=== PATIENT | male | born 1995 | race Two or more races ===

== ENCOUNTER 2024-03-31 08:19 | Emergency (ER) | payer OTHER ==
[~2024-03-31] VITALS: Ht 188 cm; Wt 70.4 kg
--- NOTE | 2024-03-31 08:59 | ED.PDOC ---
History of Present Illness HPI Comments 29Y M with PMHx TB presents to ED for chief complaint fever and cough x3days. Pt denies chest pain and SOB. No other symptoms reported. Pt was treated for TB last year. Pt vapes nicotine-containing substance. Chief Complaint: Flu like Time Seen by MD: 08:35 Reviewed Notes: Nurses Notes, Medications, Allergies Information Source: Patient Mode of Arrival: Ambulatory Timing: Days Duration: Since onset Severity: Mild Context: Recent: None Symptoms: Fever, Cough Modifying Factors: Nothing Associated Signs and Symptoms: None Past Medical History Past Medical History (Other): TB Surgical History: Denies all surgeries Family History Family History: Unknown Social History Smoker: Other (vapes) Alcohol: Denies ETOH Use Drugs: Denies Drug Use Lives In: Home Constitutional: Fever EENTM: No Symptoms Reported Respiratory: Cough Cardiovascular: No Symptoms Reported Gastrointestinal: No Symptoms Reported Genitourinary: No Symptoms Reported Neurological: No Symptoms Reported Musculoskeletal: No Symptoms Reported Integumentary: No Symptoms Reported Allergic/Immunocompromised: others Hematologic/Lymphatic: No Symptoms Reported Endocrine: No Symptoms Reported Psychiatric: No symptoms Reported All Other Systems: Reviewed and Negative Physical Exam General Appearance: No Apparent Distress, Normal HEENT: Normal ENT Inspection, Pharynx Normal, TMs Normal Neck: Full Range of Motion, Non-Tender, Normal, Normal Inspection Respiratory: Chest Non-Tender, Lungs Clear, No Accessory Muscle Use, No Re spiratory Distress, Normal Breath Sounds Cardiovascular: No Edema, No JVD, No Murmur, No Gallop, Normal Peripheral Pulses, Regular Rate/Rhythm Breast Exam: Deferred Gastrointestinal: No Organomegaly, Non Tender, No Pulsatile Mass, Normal Bowel Sounds, Soft Genitalia: Deferred Pelvic: Deferred Rectal: Deferred Extremities: No calf tenderness, Normal capillary refill, Normal inspection, Normal range of motion, Non-tender, No pedal edema Musculoskeletal : Apperance: Normal Neurologic: Alert, playground aide II-XII nml as Tested, No Motor Deficits, Normal Affect, Normal Mood, No Sensory Deficits Cerebellar Function: Normal Reflexes: Normal Skin: Dry, Normal Color, Warm Lymphatic: No Adenopathy Was a procedure done? Was a procedure done?: No Fever Differential Dx Differential Diagnosis: Influenza, Pneumonia, Pneumonitis, Sepsis, Viral Syndrome X-Ray, Labs, Meds, VS Vital Signs Date Time Temp Pulse Resp B/P (MAP) Pulse Ox O2 Delivery O2 Flow Rate FiO2 03/31/24 08:34 97.9 89 16 126/65 (85) 100 03/31/24 08:33 16 100 Room Air* [address] [address] Ph: [phone] DIAGNOSTIC IMAGING Diagnostic Imaging Report : [id number] Signed PATIENT: ZULEIKA ROSASCCT: [id number] UNIT: [id number] : 1995 LOC: ER ROOM / BED: / AGE / SEX: 29 / M ADM STATUS: REG ER SERVICE 1 ORDERING PHYSICIAN: PASTORA SELF MD PROCEDURE(s): CXRP - CHEST PORTABLE REASON: COUGH ORDER NUMBER(s): [id number], ACCESSION NUMBER(s): [id number] CHEST RADIOGRAPH Indication: COUGH Technique: Single frontal view of the chest was obtained COMPARISON: None FINDINGS: Lines and Tubes: None Lungs: Left upper lobe airspace disease. Pleura: No effusion. No pneumothorax. Cardiomediastinal contours: Unremarkable Bones: Unremarkable IMPRESSION: Left upper lobe airspace disease. ATED BY: KIRILL BARNETT MD DICTATED DATE/TIME: 03/31/24854 SIGNED BY: KIRILL BARNETT MD SIGNED DATE/TIME: 03/31/24854 CC: Time of 1ST Reevaluation: 09:05 Reevaluation 1ST: Unchanged Patient Education/Counseling: Diagnosis, Treatment, Prognosis, Need For Follow Up Family Education/Counseling: No Family Present Additional Information I reviewed the following notes from patient's past medical encounters: None The following tests were ordered, and results were reviewed by me: CXR Additional Information was gathered from interviewing the following independent historians: None I reviewed and agreed with the following test results read by other providers: CXR I discussed treatment and results with medical personnel. Departure 1 Departure Time of Disposition: 09:59 Impression: Primary Impression: Pneumonia Qualified Codes: J18.9 - Pneumonia, unspecified organism Disposition: HOME / SELF CARE / HOMELESS Condition: Good e-Prescriptions Azithromycin (Zithromax Z-Kalin) 250 Mg Tab 250 MG PO DAILY for 5 Days, #5 TAB Prov: PASTORA SELF MD 03/31/24 Discharged With: Self Critical Care Note Critical Care Time?: No Stability Stability form required: No Heart Score Heart Score: Heart Score Response (Comments) Value History N/A 0 EKG N/A 0 Age N/A 0 Risk Factors N/A 0 Troponin N/A 0 Total 0 I personally scribed for PASTORA SELF MD ([email or web address]) on 03/31/24 at 08:59. Electronically submitted by Evelin Harry ([employer]). I personally scribed for PASTORA SELF MD ([email or web address]) on 03/31/24 at 09:47. Electronically submitted by Evelin Harry ([employer]). PASTORA SELF MD Mar 31, 2024 08:59
[2024-03-31] MEDS ORDERED: AZITTAB PO (10:00)
[2024-03-31 10:10] VITALS: BP 126/69; PULSE 87; RESP 18; TEMP 97.9; O2SAT 98
== END 2024-03-31 10:21 | disposition home or self-care (01) ==
LOC: ER 08:19
DX: J18.9 Pneumonia, unspecified organism (principal); F17.290 Nicotine dependence, other tobacco product, uncomplicated; Z86.11 Personal history of tuberculosis
CPT/HCPCS: 71045

== ENCOUNTER 2024-04-04 12:48 | Emergency (ER) | payer OTHER ==
[~2024-04-04] VITALS: Ht 182.9 cm; Wt 70.0 kg
[~2024-04-04 12:48] MED LIST: AZITTAB PO
[2024-04-04 13:43] LABS: Basophils # (auto) 0 10 ^3/uL (0-0.2); Basophils % (auto) 0.4 % (0.0-2.0); Eosinophils # (auto) 0 10 ^3/uL (0-0.8); Eosinophils % (auto) 0.1 % (0.0-7.0); Hematocrit 48.5 % (41.0-53.0); Hemoglobin 16.4 g/dL (13.5-17.5); Lymphocytes # (auto) 1.9 10 ^3/uL (0.4-5.4); Lymphocytes % (auto) 38.2 % (10.0-50.0); Mean Corpuscular Hemoglobin 29.6 pg (28.0-32.0); Mean Corpuscular Hgb Conc. 33.8 g/dL (32.0-36.0); Mean Corpuscular Volume 87.4 fL (80.0-100.0); Monocytes # (auto) 0.7 10 ^3/uL (0-1.3); Monocytes % (auto) 14.2 % (0.0-12.0); Neutrophils # (auto) 2.3 10 ^3/uL (1.6-8.6); Neutrophils % (auto) 47.1 % (37.0-80.0); Nucleated Red Blood Cells % 0.2 %; Platelet Count (auto) 194 10^3/uL (140-450); Red Blood Cells 5.54 10^6/uL (4.5-5.90); Red Cell Distribution Width 13.8 % (11.8-14.3); White Blood Cell 4.9 10^3/uL (4.4-10.8)
--- NOTE | 2024-04-04 13:49 | ECG ---
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
[2024-04-04 13:56] LABS: Alanine Aminotransferase 18 U/L (7-40); Alkaline Phosphatase 67 U/L (46-116); Anion Gap 10 (5-15); Aspartate Aminotransferase 30 U/L (13-40); BUN/Creatinine Ratio 12.4 (10.0-20.0); Blood Urea Nitrogen 11 mg/dL (9-23); Carbon Dioxide 28 mmol/L (20-31); Chloride 102 mmol/L (98-107); Glucose 104 mg/dL (74-106); Potassium 4.5 mmol/L (3.5-5.1); Sodium 140 mmol/L (136-145)
[2024-04-04 13:57] LABS: Albumin 4.8 g/dL (3.2-4.8); Bilirubin, Total 0.4 mg/dL (0.2-1.0); Total Protein 7.4 g/dL (5.7-8.2)
[2024-04-04 14:02] LABS: Calcium 10.1 mg/dL (8.7-10.4)
[2024-04-04] MEDS: SODIUM CHLORIDE 0.9% 1,000 ML IV ONE (14:37)
--- NOTE | 2024-04-04 15:06 | DVH ---
CHEST RADIOGRAPH Indication: cough Technique: Single frontal view of the chest was obtained Comparison: XY CHEST PORTABLE on DOS: 03/31/24 FINDINGS: Lines and Tubes: None Lungs: left upper lobe opacity. Pleura: No effusion. No pneumothorax. Cardiomediastinal contours: Unremarkable Bones: No acute osseous abnormality. IMPRESSION: left upper lobe opacity.
[2024-04-04] MEDS: ADENOSINE 6 MG/2 ML INJ IV ONE ×2 (15:30→15:31)
--- NOTE | 2024-04-04 16:49 | ED.PDOC ---
HPI Comments 29-year-old male presents with palpitations and racing heart. Patient states he was seen here on March 31 and diagnosed with pneumonia. States he has been taking his medications as prescribed. Today he noticed racing heart and it became very uncomfortable. States he was did have some mild shortness of breath due to the racing heartbeat no chest pain. No dizziness no headaches. Nothing makes it better, moving makes the palpitations worse. Patient states no prior cardiac history. States he has not seen a doctor in many years. Chief Complaint: Palpitations Time Seen by MD: 13:15 Primary Care Provider: NONE Reviewed Notes: Nurses Notes Allergies: Coded Allergies: NO KNOWN ALLERGIES (Unverified , 03/31/24) Home Meds Active Scripts Azithromycin (Zithromax Z-Kalin) 250 Mg Tab, 250 MG PO DAILY for 5 Days, #5 TAB Prov:PASTORA SELF MD 03/31/24 Information Source: Patient Mode of Arrival: Ambulatory Past Medical History PAST MEDICAL HISTORY: Denies Surgical History: Denies all surgeries Family History Family History: Unknown Social History Smoker: Other Alcohol: Denies ETOH Use Drugs: Denies Drug Use Lives In: Home Constitutional: denies: chills, diaphoresis, fatigue, fever, malaise, sweats, weakness, others EENTM: denies: blurred vision, double vision, ear bleeding, ear discharge, ear drainage, ear pain, ear ringing, eye pain, eye redness, hearing loss, mouth pain, mouth swelling, nasal discharge, nose bleeding, nose congestion, nose pain, photophobia, tearing, throat pain, throat swelling, voice changes, others Respiratory: reports: cough, shortness of breath; denies: hemoptysis, orthopnea, SOB at rest, SOB with excertion, stridor, wheezing, others Cardiovascular: reports: irregular heart beat, palpitations; denies: chest pain, dizzy spells, diaphoresis, Dyspnea on exertion, edema, left arm pain, lightheadedness, PND, syncope, others Gastrointestinal: denies: abdomen distended, abdominal pain, blood streaked bowels, constipated, diarrhea, dysphagia, difficulty swallowing, hematemesis, melena, nausea, poor appetite, poor fluid intake, rectal bleeding, rectal pain, vomiting, others Genitourinary: denies: burning, dysuria, flank pain, frequency, hematuria, i ncontinence, penile discharge, penile sore, pain, testicle pain, testicle swelling, urgency, others Neurological: denies: dizziness, fainting, headache, left sided numbness, left sided weakness, numbness, paresthesia, pre-existing deficit, right sided numbness, right sided weakness, seizure, speech problems, tingling, tremors, weakness, others Musculoskeletal: denies: back pain, gout, joint pain, joint swelling, muscle pain, muscle stiffness, neck pain, others Integumetry: denies: bruises, change in color, change in hair/nails, dryness, laceration, lesions, lumps, rash, wounds, others Allergic/Immunocompromised: denies: Difficulty Healing, Frequent Infections, Hives, Itching, others Hematologic/Lymphatic: denies: anemia, blood clots, easy bleeding, easy bruising, swollen glands, others Physical Exam General Appearance: No Apparent Distress, Normal HEENT: Normal ENT Inspection, Pharynx Normal, TMs Normal Neck: Full Range of Motion, Non-Tender, Normal, Normal Inspection Respiratory: Chest Non-Tender, Lungs Clear, No Accessory Muscle Use, No Respiratory Distress, Normal Breath Sounds Cardiovascular: No Edema, No JVD, No Murmur, No Gallop, Tachycardia Breast Exam: Deferred Gastrointestinal: No Organomegaly, Non Tender, No Pulsatile Mass, Normal Bowel Sounds, Soft Genitalia: Deferred Pelvic: Deferred Rectal: Deferred Extremities: No calf tenderness, Normal capillary refill, Normal inspection, Normal range of motion, Non-tender, No pedal edema Musculoskeletal : Apperance: Normal Neurologic: Alert, hospital account liaison II-XII nml as Tested, No Motor Deficits, Normal Affect, Normal Mood, No Sensory Deficits Cerebellar Function: Normal Reflexes: Normal Skin: Dry, Normal Color, Warm Lymphatic: No Adenopathy Was a procedure done? Was a procedure done?: No Cardioversion Vagal maneuver: Were attempted Attempts: x1 Resulted Rhythm: NSR Direct Supervision: Yes Informed consent obtained: Yes Risks/benefits/alt described: Yes Notes Patient given 6 mg adenosine IV push with successful cardioversion. CP Differential Dx Differential Diagnosis: Angina, Anxiety / Panic Attack, Atrial Dysrhythmia, MA, Pulmonary Embolus X-Ray, Labs, Meds, VS Vital Signs Date Time Temp Pulse Resp B/P (MAP) Pulse Ox O2 Delivery O2 Flow Rate FiO2 04/04/24 16:00 85 14 106/62 (77) 98 04/04/24 14:35 158 19 106/77 (87) 04/04/24 13:48 153 04/04/24 13:07 154 04/04/24 13:03 97.7 154 18 90/70 (77) 96 Lab Test 04/04/24 14:24 04/04/24 13:29 Range/Units Troponin I High Sensitivity 3 L < 3 L </=54 ng/L White Blood Count 4.9 4.4-10.8 10^3/uL Red Blood Count 5.54 4.5-5.90 10^6/uL Hemoglobin 16.4 13.5-17.5 g/dL Hematocrit 48.5 41.0-53.0 % Mean Corpuscular Volume 87.4 80.0-100.0 fL Mean Corpuscular Hemoglobin 29.6 28.0-32.0 pg Mean Corpuscular Hemoglobin Concent 33.8 32.0-36.0 g/dL Red Cell Distribution Width 13.8 11.8-14.3 % Platelet Count 194 140-450 10^3/uL Mean Platelet Volume 8.9 6.9-10.8 fL Neutrophils (%) (Auto) 47.1 37.0-80.0 % Lymphocytes (%) (Auto) 38.2 10.0-50.0 % Monocytes (%) (Auto) 14.2 H 0.0-12.0 % Eosinophils (%) (Auto) 0.1 0.0-7.0 % Basophils (%) (Auto) 0.4 0.0-2.0 % Neutrophils # (Auto) 2.3 1.6-8.6 10 ^3/uL Lymphocytes # (Auto) 1.9 0.4-5.4 10 ^3/uL Monocytes # (Auto) 0.7 0-1.3 10 ^3/uL Eosinophils # (Auto) 0 0-0.8 10 ^3/uL Basophils # (Auto) 0 0-0.2 10 ^3/uL Nucleated Red Blood Cells 0.2 % Sodium Level 140 136-145 mmol/L Potassium Level 4.5 3.5-5.1 mmol/L Chloride Level 102 98-107 mmol/L Carbon Dioxide Level 28 20-31 mmol/L Anion Gap 10 5-15 Blood Urea Nitrogen 11 9-23 mg/dL Creatinine 0.89 0.700-1.30 mg/dL Glomerular Filtration Rate Calc 120 >90 mL/min BUN/Creatinine Ratio 12.4 10.0-20.0 Serum Glucose 104 74-106 mg/dL Calcium Level 10.1 8.7-10.4 mg/dL Total Bilirubin 0.4 0.2-1.0 mg/dL Aspartate Amino Transferase (AST) 30 13-40 U/L Alanine Aminotransferase (ALT) 18 7-40 U/L Alkaline Phosphatase 67 46-116 U/L Total Protein 7.4 5.7-8.2 g/dL Albumin 4.8 3.2-4.8 g/dL Current Medications Medications (Trade) Dose Ordered Sig/Jhonatan Route Start Time Stop Time Status Last Admin Sodium Chloride 1,000 ml @ 1,000 mls/hr Q1H ONCE IV 04/04/24 14:15 04/04/24 15:22 DC 04/04/24 14:37 Adenosine (Adenosine) 6 mg ONCE ONCE IV 04/04/24 15:30 04/04/24 15:31 DC 04/04/24 15:31 X-Ray, Labs, Meds, VS Comment Patient will be admitted for pneumonia and SVT Patient has no outpatient follow up so it was recommended for cardiac consult in the morning Patient clinically stable Imaging: X-rays and CT scans were reviewed and interpreted by this provider, imaging shows no fractures and no pathological disease. Pending radiology review. Laboratory: Labs reviewed and interpreted by this provider. No significant abnormalities noted. Patient has prior medical visits reviewed. Med reconciliation performed Vital signs reviewed Time of 1ST Reevaluation: 16:49 Reevaluation 1ST: Improved Patient Education/Counseling: Diagnosis, Treatment Family Education/Counseling: No Family Present Departure 1 Departure Time of Disposition: 16:48 Impression: Primary Impression: Pneumonia Qualified Codes: J18.9 - Pneumonia, unspecified organism Additional Impression: Tachycardia Disposition: 09 ADMITTED INPATIENT Condition: Fair Discharged With: Self Critical Care Note Critical Care Time?: Yes (30 min-critical care time only) Critical care comment: Due to a high probability of clinically significant, life threatening deterioration, the patient required my highest level of preparedness to intervene emergently and I personally spent this critical care time directly and personally managing the patient. This critical care time included obtaining a history; examining the patient; pulse oximetry; ordering and review of studies; arranging urgent treatment with development of a management plan; evaluation of patient's response to treatment; frequent reassessment; and, discussions with other providers. This critical care time was performed to assess and manage the high probability of imminent, life-threatening deterioration that could result in multi-organ failure. It was exclusive of separately billable procedures and treating other patients and teaching time. Stability Stability form required: No Heart Score Heart Score: Heart Score Response (Comments) Value History Slightly Suspicious 0 EKG Normal 0 Age <45 0 Risk Factors No known risk factors 0 Troponin Normal limit 0 Total 0 EDWARD KELLY Apr 04, 2024 16:49
[2024-04-04 16:52] VITALS: PULSE 84; RESP 17; O2SAT 96
--- NOTE | 2024-04-04 17:15 | ECG ---
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
[2024-04-04 19:30] VITALS: PULSE 76; RESP 14; TEMP 98.4; O2SAT 99
[2024-04-04 20:49] VITALS: BP 115/61; PULSE 91; RESP 16; O2SAT 99
[2024-04-04 21:19] LABS: Urine Bacteria None Seen /hpf (None Seen)
[2024-04-04 21:30] LABS: Urine Blood Negative /uL (Negative); Urine Clarity Clear (Clear); Urine Color Light-Yellow (Yellow); Urine Mucus FEW (None Seen); Urine Protein, UAD TRACE (Negative); Urine Specific Gravity 1.016 (1.001-1.035); Urine Squamous Epithelial Cell None Seen /hpf (<5); Urine Urobilinogen Normal (Negative); Urine WBC <1 /hpf (0 - 3); Urine pH 7.5 (5.0-9.0)
--- NOTE | 2024-04-05 07:16 | ECG ---
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
--- NOTE | 2024-04-08 15:25 | ECG ---
[facility] Test Date: 2024-04-04 Test Time: 13:07:36 Pat Name: CLAY LUGO Department: ER Room: Gender: M Folder Machine: KSENIA : 1995 Requested By: EDWARD KELLY Order Number: [id number] Reading MD: Colten Rhodes Measurements Intervals [place] Rate: 154 P: 0 CT: 70 QRS: 90 QRSD: 85 T: 68 QT: 293 QTc: 469 Interpretive Statements Sinus tachycardia Borderline right axis deviation Borderline ST depression, diffuse leads Borderline prolonged QT interval Baseline wander in lead(s) I,III,aVR,aVL Electronically Signed On 04-10-2024 15:01:25 PST by Colten Rhodes Please click the below link to view image of tracing.
== END 2024-04-04 20:49 | disposition home or self-care (01) ==
LOC: ER 12:48
DX: J18.9 Pneumonia, unspecified organism (principal); R00.0 Tachycardia, unspecified; F17.200 Nicotine dependence, unspecified, uncomplicated; R06.02 Shortness of breath
CPT/HCPCS: 36415; 71045; 80053; 81001; 84484; 85025; 92960; 93005; 96361; 96374; 99291; J0153; J7030